=== PATIENT | female | born 1985 | race Caucasian/White ===

== ENCOUNTER 2017-11-13 07:10 | Inpatient (IN) | payer OTHER ==
[~2017-11-13 07:10] MED LIST: CITRIC ACID/SODIUM CITRATE 30 ML UNIT-DOSE CUP PO ONE; ELECTROLYTE-148 SOLN 500 ML IV SCH
[2017-11-13] MEDS ORDERED: ELECTROLYTE-148 SOLN 1,000 ML IV SCH (07:40)
[2017-11-13 08:19] VITALS: BMI 33.4
[2017-11-13] MEDS ORDERED: morphine SULFATE/Preservative Free 0.5 MG/ML (1cc Syringe) ONE (09:38)
[2017-11-13] MEDS ORDERED: BUPIVACAINE 0.75% IN DEXTROSE/PF 2ML AMPULE NR ONE (09:38)
--- NOTE | 2017-11-13 09:44 | HP ---
Past Medical History - Primary Care Physician PCP:: Shamir Trotter - Admission Chief Complaint: 39 weeks, IDDM,previous c/s , sterlizatin History of Present Illness: 31 yo f with 2 previous c/s , IDDM, obesity admitted for repeat c/s and BTL, aware BTL is ermenant ,has small failure risk and risk of ectopic, risks of repeat c/s discussed History Source: Patient - Past Medical History ...: 3 ...Para: 2 ...Term: 2 ...: 0 ...Spon : 0 ...Induced : 0 ...Multiple Gestation: 0 ...LMP: 02/11/17 ... Weeks Gestation by Dates: 39.3 ...EDC by Dates: 11/18/17 ...EDC by Sono: 11/18/17 Endocrine: Yes: Other (GESTATIONAL DIABETES) - Past Surgical History Past Surgical History: Yes: Hx Myomectomy: No Hx Transabdominal Cerclage: No - Smoking History Smoking history: Never smoked Have you smoked in the past 12 months: No - Alcohol/Substance Use Hx Alcohol Use: No History of Substance Use: reports: None - Social History ADL: Independent History of Recent Travel: No Home Medications - Allergies Allergies/Adverse Reactions: Allergies Allergy/AdvReac Type Severity Reaction Status Date / Time No Known Allergies Allergy Verified 11/13/17 08:22 - Home Medications Home Medications: Ambulatory Orders Ferrous Sulfate 325 mg PO BID 10/30/17 Insulin Lispro [Humalog] 9 unit SQ AC 10/30/17 Insulin NPH Hum/Reg Insulin Hm [Humulin 70/30 Kwikpen] 20 unit SQ BID 10/30/17 Pnv No.95/Ferrous Fum/Folic AC [ Vitamin Tablet] 1 each PO DAILY Review of Systems - Review of Systems Constitutional: reports: No Symptoms Eyes: reports: No Symptoms HENT: reports: No Symptoms Neck: reports: No Symptoms Cardiovascular: reports: No Symptoms Respiratory: reports: No Symptoms Gastrointestinal: reports: No Symptoms Genitourinary: reports: No Symptoms Breasts: reports: No Symptoms Reported Musculoskeletal: reports: No Symptoms Neurological: reports: No Symptoms Endocrine: reports: No Symptoms Hematology/Lymphatic: reports: No Symptoms Psychiatric: reports: No Symptoms Physical Exam - Maternity Vital Signs: Vital Signs Temperature 99.4 F 11/13/17 07:10 Pulse Rate 71 11/13/17 07:10 Respiratory Rate 18 11/13/17 07:10 Blood Pressure 139/74 11/13/17 07:10 O2 Sat by Pulse Oximetry (%) Constitutional: Yes: Well Nourished, No Distress, Calm Eyes: Yes: WNL, Conjunctiva Clear, EOM Intact HENT: Yes: WNL, Atraumatic, Normocephalic Neck: Yes: WNL, Supple, Trachea Midline Cardiovascular: Yes: WNL, Regular Rate and Rhythm Breast(s): Yes: WNL - Abdominal Exam/OB Fundal Height: 40 Number of Fetuses: Single Presentation: Vertex Contractions: No Intensity: Unaware Monitor Mode: External Heart Rate Location: [facility] Category: I Accelerations: Uniform Decelerations: None - Vaginal Exam/OB Vaginal Bleediing: No Amniotic Membrane Status: Intact Presentation: Vertex/Position Station: -2 - Physical Exam Musculoskeletal: Yes: WNL Extremities: Yes: WNL Edema: Yes Edema: LLE: 1+, RLE: 1+ Deep Tendon Reflex Grade: Normal +2 Psychiatric: Yes: WNL Problem List - Problems (1) with 39 completed weeks gestation Code(s): Z3A.39 - 39 WEEKS GESTATION OF (2) Previous section Code(s): Z98.891 - HISTORY OF UTERINE SCAR FROM PREVIOUS SURGERY (3) Insulin dependent diabetes mellitus Code(s): E11.9 - TYPE 2 DIABETES MELLITUS WITHOUT COMPLICATIONS; Z79.4 - [facility] (CURRENT) USE OF INSULIN (4) Obesity Code(s): E66.9 - OBESITY, UNSPECIFIED Qualifiers: Obesity type: due to excess calories (5) Admission for sterilization Code(s): Z30.2 - ENCOUNTER FOR STERILIZATION Assessment/Plan admit for repeat c/s, BTL, risks discussed , BGM
[2017-11-13] MEDS ORDERED: OXYTOCIN 20 UNITS in 0.9% NS 20 UNIT/1,000 ML INFUS.BAG IV ONE ×2 (09:47→11:14)
[2017-11-13] MEDS ORDERED: DEXAMETHASONE SOD PHOSPHATE 4 MG/1 ML VIAL ONE (09:54)
[2017-11-13] MEDS ORDERED: KETOROLAC TROMETHAMINE 30 MG/1 ML VIAL ONE (09:54)
[2017-11-13] MEDS ORDERED: SODIUM CHLORIDE 0.9% P/F 10 ML VIAL IJ ONE (10:00)
[2017-11-13] MEDS ORDERED: ceFAZolin SODIUM 1 GM VIAL ONE ×2 (10:00→17:51)
[2017-11-13] MEDS ORDERED: BENZOCAINE 28 GM HEMORRHOIDAL OINTMENT PR PRN (10:49)
[2017-11-13] MEDS ORDERED: oxyCODONE HCL 5 MG TABLET PO PRN ×2 (10:49)
[2017-11-13] MEDS ORDERED: diphenhydrAMINE HCL 25 MG CAPSULE (FP) PO PRN (10:49)
[2017-11-13] MEDS ORDERED: IBUPROFEN 800 MG/8 ML IJ IVPB PRN (10:49)
[2017-11-13] MEDS ORDERED: IBUPROFEN 600 MG TABLET (FP) PO PRN (10:49)
[2017-11-13] MEDS ORDERED: WITCH HAZEL 50% (TUCKS) 40 PAD/JAR PAD TP PRN (10:49)
[2017-11-13] MEDS ORDERED: METHYLERGONOVINE MALEATE 0.2 MG/1 ML AMP IM PRN (10:49)
[2017-11-13] MEDS ORDERED: BENZOCAINE 20% 57 GM BOTTLE TP PRN (10:49)
[2017-11-13] MEDS ORDERED: OXYTOCIN 20 UNITS in 0.9% NS 20 UNIT/1,000 ML INFUS.BAG IV SCH (11:00)
[2017-11-13] MEDS: INSULIN SLIDING SCALE (NOVOLOG) 1 VIAL SQ SCH ×3 (11:17→22:29)
--- NOTE | 2017-11-13 11:46 | OP ---
DATE OF OPERATION: 11/13/2017 PREOPERATIVE DIAGNOSES: , 39 weeks, 2 previous sections, insulin-dependent diabetes and request of repeat section and tubal ligation. POSTOPERATIVE DIAGNOSES: , 39 weeks, 2 previous sections, insulin-dependent diabetes and request of repeat section and tubal ligation. PROCEDURE: Repeat low segment transverse section and bilateral tubal ligation. SURGEON: Shamir Trotter MD SCIENTIFIC ARTIST: RHYS Whitman ANESTHESIA: Spinal. ANESTHESIOLOGIST: . ESTIMATED BLOOD LOSS: 500 mL. OPERATION: Patient was taken to the operating room. Under adequate spinal anesthesia abdomen and perineum were prepped and draped. Pfannenstiel abdominal skin incision was made over the previous incision. Abdominal wall was cut layer by layer until peritoneum was exposed and incised. Upon entering the abdominal cavity lower uterine segment was identified and uterovesical fold of peritoneum established. Bladder was pushed down. Then with the lower blade of the Kathleen retractor in the pelvis a low transverse uterine incision was made. The incision extended laterally with bandage scissors. Amniotic sac was entered. Clear fluid. Head delivered. Nasopharynx was suctioned and live baby delivered without any difficulty. 9, 9. Placenta was delivered manually. Uterine cavity was cleaned of all remaining tissue. Uterine incision was closed in 2 layers, 1st layer with 0 Biosyn continuous suture, the 2nd layer with 0 Biosyn imbricating the 1st layer. Bladder flap was closed with 0 Biosyn continuous suture. Both tubes and ovaries were checked, were normal. No active bleeding was seen. All the lap pad, sponge and instrument counts were correct. Then the right tube was grasped with Madison and right tube was doubly tied with 2-0 plain. Portion of tube was removed and endosalpinx was cauterized. The same procedure repeated for the opposite tube. Visualization of both tubes showed no bleeding. Then peritoneum was closed with 0 Biosyn continuous suture. Muscles were brought together with interrupted suture of 0 Biosyn. Fascia was closed with 0 Biosyn continuous suture, subcutaneous fat interrupted suture of 0 Biosyn and the skin was closed with santo. Patient tolerated procedure well, left the OR in good condition. Guerrero [id number]
[2017-11-13] MEDS ORDERED: DEXTROSE 5%-WATER - 50 ML IVPB ONE (17:51)
[2017-11-13] MEDS: CEFAZOLIN 1 GM in DEXTROSE 5%-WATER - 50 ML IVPB SCH (18:15)
[2017-11-14] MEDS ORDERED: DEXTROSE 5%-WATER - 50 ML IVPB ONE (01:03)
[2017-11-14] MEDS ORDERED: ceFAZolin SODIUM 1 GM VIAL ONE (01:04)
[2017-11-14] MEDS: CEFAZOLIN 1 GM in DEXTROSE 5%-WATER - 50 ML IVPB SCH (01:22)
--- NOTE | 2017-11-14 02:38 | PN ---
Post Progress Note - Subjective Subjective: 31 yo Para 3 status post repeat , seen and evaluated. Doing well. Post Day: 1 Type of Delivery: Repeat C/S Vital Signs: Vital Signs Temperature 98.3 F 11/14/17 01:22 Pulse Rate 64 11/14/17 01:22 Respiratory Rate 18 11/14/17 02:00 Blood Pressure 108/66 11/14/17 01:22 O2 Sat by Pulse Oximetry (%) 99 11/13/17 11:30 Breast Exam: Yes: Soft Uterus: Yes: Fundus Firm Incision: Yes: Dressing dry and intact Abdomen/GI: Yes: Abdomen soft Lochia: Yes: Rubra Lochia, amount: Small Extremities: Yes: Calves non-tender Perineum: Yes: Intact Activity: Other (she's lying in bed) Assessment/Plan Status post repeat Ambulation Analgesia as needed Continue routine post op care
[2017-11-14] MEDS: ACETAMINOPHEN 325 MG TABLET (FP) PO PRN ×4 (04:59→20:30)
[2017-11-14] MEDS: SIMETHICONE 80 MG TAB.CHEW (FP) PO PRN ×2 (05:00→20:29)
[2017-11-14] MEDS: IBUPROFEN 600 MG TABLET (FP) PO PRN ×3 (05:00→15:46)
[2017-11-14] MEDS: INSULIN SLIDING SCALE (NOVOLOG) 1 VIAL SQ SCH ×4 (06:08→21:53)
[2017-11-14 08:51] LABS: BASO % 0.5 % (0-2.0); EOS % 0.4 % (0-4.5); HEMATOCRIT 33.1 % (32.4-45.2); HEMOGLOBIN 11.5 GM/dL (10.7-15.3); LYMPH % 24.1 % (8-40); MCH 31.1 pg (25.7-33.7); MCHC 34.7 g/dl (32.0-36.0); MEAN CELL VOLUME 89.8 fl (80-96); MEAN PLT VOLUME 9.6 fl (7.5-11.1); MONO % 4.7 % (3.8-10.2); NEUT % 70.3 % (42.8-82.8); PLATELET COUNT 197 K/MM3 (134-434); RBC 3.69 M/mm3 (3.60-5.2); RDW 14.4 % (11.6-15.6); WHITE BLOOD COUNT 8.5 K/mm3 (4.0-10.0)
[2017-11-14] MEDS: ENOXAPARIN NA (PORCINE) 40 MG/0.4 ML DISP.SYRIN SQ SCH (09:17)
--- NOTE | 2017-11-14 10:23 | PN ---
Progress Note, Physician Chief Complaint: Pt. ambulating and voiding. Pain controlled, no anesthesia complaints. - Current Medication List Current Medications: Active Medications Acetaminophen (Tylenol -) 650 mg PO Q4H PRN PRN Reason: PAIN LEVEL 6-10 Last Admin: 11/14/17 09:21 Dose: 650 mg Benzocaine (Americaine 20% [place] -) 1 spray TP PRN PRN PRN Reason: Pain - Topical Benzocaine (Americaine Ointment -) 1 applic DC PRN PRN PRN Reason: Pain - Topical Bisacodyl (Dulcolax Suppository -) 10 mg DC PRN PRN PRN Reason: CONSTIPATION Diphenhydramine HCl (Benadryl -) 25 mg PO Q8H PRN PRN Reason: FOR ITCHING Enoxaparin Sodium (Lovenox -) 40 mg SQ DAILY [facility] Last Admin: 11/14/17 09:17 Dose: 40 mg Parenteral Electrolytes (Plasma-Lyte 148 -) 1,000 mls @ 125 mls/hr IV ASDIR [facility] Last Admin: 11/13/17 08:41 Dose: 125 mls/hr Ibuprofen (Motrin -) 600 mg PO Q4H PRN PRN Reason: PAIN LEVEL 1-5 Last Admin: 11/14/17 09:20 Dose: 600 mg Ibuprofen (Motrin -) 600 mg PO Q4H PRN PRN Reason: PAIN LEVEL 1 - 3 Ibuprofen (Caldolor Injection -) 800 mg IVPB Q6H PRN PRN Reason: PAIN > 5 if PO not effective. Last Admin: 11/13/17 17:04 Dose: 800 mg Insulin Aspart (Novolog Vial Sliding Scale -) 1 vial SQ [facility] PRN Reason: Protocol Last Admin: 11/14/17 06:08 Dose: Not Given Methylergonovine Maleate (Methergine Injection -) 0.2 mg IM Q4H PRN PRN Reason: EXCESSIVE BLEEDING Oxycodone HCl (Roxicodone -) 5 mg PO Q4H PRN PRN Reason: PAIN LEVEL 4 - 6 Oxycodone HCl (Roxicodone -) 10 mg PO Q4H PRN PRN Reason: PAIN LEVEL 7 - 10 Senna/Docusate Sodium (Pericolace -) 2 tablet PO HS PRN PRN Reason: CONSTIPATION Simethicone (Mylicon -) 80 mg PO Q4H PRN PRN Reason: GAS Last Admin: 11/14/17 05:00 Dose: 80 mg Witch Nicki/Glycerin (Tucks Pads -) 1 pad TP PRN PRN PRN Reason: Pain - Topical - Objective Vital Signs: Vital Signs Temperature 98.0 F 11/14/17 07:52 Pulse Rate 66 11/14/17 07:52 Respiratory Rate 20 11/14/17 08:00 Blood Pressure 114/62 11/14/17 07:52 O2 Sat by Pulse Oximetry (%) 99 11/13/17 11:30 Constitutional: Yes: Well Nourished, No Distress, Calm Musculoskeletal: Yes: WNL Neurological: Yes: WNL, Alert, Oriented ...Motor Strength: WNL Labs: CBC, BMP 11/14/17 08:00 Assessment/Plan POD#1 s/p under spinal with duramorph. Doing well. D/C from anesthesia care.
[2017-11-14] MEDS ORDERED: BISACODYL 10 MG SUPP.RECT PR PRN (10:49)
[2017-11-14] MEDS: SENNOSIDES/DOCUSATE COMBO (SENNA PLUS) TABLET (UD) PO PRN (20:30)
[2017-11-15] MEDS: SIMETHICONE 80 MG TAB.CHEW (FP) PO PRN ×4 (02:17→21:13)
[2017-11-15] MEDS: IBUPROFEN 600 MG TABLET (FP) PO PRN ×4 (02:17→21:14)
[2017-11-15] MEDS: ACETAMINOPHEN 325 MG TABLET (FP) PO PRN ×4 (02:18→21:13)
[2017-11-15] MEDS: INSULIN SLIDING SCALE (NOVOLOG) 1 VIAL SQ SCH ×4 (06:31→22:16)
[2017-11-15] MEDS: ENOXAPARIN NA (PORCINE) 40 MG/0.4 ML DISP.SYRIN SQ SCH (09:22)
--- NOTE | 2017-11-15 19:42 | PN ---
Post Progress Note - Subjective Subjective: 31 yo Para 3 status post , seen and evaluated. Doing well. Post Day: 2 Type of Delivery: Repeat C/S Vital Signs: Vital Signs Temperature 98.4 F 11/15/17 10:00 Pulse Rate 60 11/15/17 10:00 Respiratory Rate 20 11/15/17 10:00 Blood Pressure 118/67 11/15/17 10:00 O2 Sat by Pulse Oximetry (%) 99 11/13/17 11:30 Breast Exam: Yes: Soft Uterus: Yes: Fundus Firm Incision: Yes: Dressing dry and intact Abdomen/GI: Yes: Abdomen soft, Tolerating PO Lochia: Yes: Rubra Lochia, amount: Small Extremities: Yes: Calves non-tender Perineum: Yes: Intact Activity: Ambulating - Labs Labs: CBC WBC 8.5 K/mm3 (4.0-10.0) 11/14/17 08:00 RBC 3.69 M/mm3 (3.60-5.2) 11/14/17 08:00 Hgb 11.5 GM/dL (10.7-15.3) 11/14/17 08:00 Hct 33.1 % (32.4-45.2) 11/14/17 08:00 MCV 89.8 fl (80-96) 11/14/17 08:00 MCH 31.1 pg (25.7-33.7) 11/14/17 08:00 MCHC 34.7 g/dl (32.0-36.0) 11/14/17 08:00 RDW 14.4 % (11.6-15.6) 11/14/17 08:00 Plt Count 197 K/MM3 (134-434) 11/14/17 08:00 MPV 9.6 fl (7.5-11.1) 11/14/17 08:00 Neutrophils % 70.3 % (42.8-82.8) 11/14/17 08:00 Lymphocytes % 24.1 % (8-40) 11/14/17 08:00 Monocytes % 4.7 % (3.8-10.2) 11/14/17 08:00 Eosinophils % 0.4 % (0-4.5) 11/14/17 08:00 Basophils % 0.5 % (0-2.0) 11/14/17 08:00 Assessment/Plan Status post repeat Ambulation Analgesia as needed Continue routine post op care
[2017-11-15] MEDS: SENNOSIDES/DOCUSATE COMBO (SENNA PLUS) TABLET (UD) PO PRN (21:14)
--- NOTE | 2017-11-16 02:00 | DS ---
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 Vital Signs: Vital Signs Temperature 98.0 F 11/15/17 21:08 Pulse Rate 64 11/15/17 21:08 Respiratory Rate 20 11/15/17 21:08 Blood Pressure 114/68 11/15/17 21:08 O2 Sat by Pulse Oximetry (%) 99 11/13/17 11:30 Constitutional: Yes: Well Nourished Eyes: Yes: Conjunctiva Clear HENT: Yes: Atraumatic Neck: Yes: Supple Cardiovascular: Yes: Regular Rate and Rhythm Respiratory: Yes: Regular Gastrointestinal: Yes: Normal Bowel Sounds External Genitalia: Yes: Normal Vaginal Exam: Yes: Normal Cervix: Yes: Normal Uterus: Yes: Firm Extremities: Yes: WNL Wound/Incision: Yes: Well Approximated Neurological: Yes: Alert, Oriented ...Motor Strength: WNL Psychiatric: Yes: Alert, Oriented Labs: CBC, BMP 11/14/17 08:00 Delivery - Delivery Type of Anesthesia: Spinal EBL (cc): 500 Delivery, Single - Stages of Labor Date 1st Stage Initiatied: 11/13/17 Time 1st Stage Initiated: 07:20 Date of Delivery: 11/13/17 Time of Delivery: 10:02 Time Placenta Delivered: 10:03 - Condition of Infant 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 Present: Yes Name: Micky Montano Infant Gender: Female Weight: 6 lb 13 oz Position: Right, OT Total Hours ROM (Hrs/Mins): 2 hours 53 minutes - 1 Minute Total Score: 9 5 Minutes Total Score: 9 - Feeding Plan Initial Plan: Exclusive throughout hospitalization Discharge Summary Reason For Visit: LABOR Current Active Problems Admission for sterilization (Acute) Insulin dependent diabetes mellitus (Acute) Obesity (Acute) with 39 completed weeks gestation (Acute) Previous section (Acute) Procedures: Principal: Repeat Low Transverse Hospital Course: Routine post op care Condition: Stable - Instructions Diet, Activity, Other Instructions: return to clinic in 1 week for santo removal on 11/21/17. call [facility] for appointment. [phone]. Disposition: HOME - Home Medications Comprehensive Discharge Medication List: Ambulatory Orders Ferrous Sulfate 325 mg PO BID 10/30/17 Insulin Lispro [Humalog] 9 unit SQ AC 10/30/17 Insulin NPH Hum/Reg Insulin Hm [Humulin 70/30 Kwikpen] 20 unit SQ BID 10/30/17 Pnv No.95/Ferrous Fum/Folic AC [ Vitamin Tablet] 1 each PO DAILY
[2017-11-16] MEDS: INSULIN SLIDING SCALE (NOVOLOG) 1 VIAL SQ SCH ×2 (06:12→11:14)
[2017-11-16] MEDS: IBUPROFEN 600 MG TABLET (FP) PO PRN ×2 (06:15→13:24)
[2017-11-16] MEDS: SIMETHICONE 80 MG TAB.CHEW (FP) PO PRN ×2 (06:15→13:25)
[2017-11-16] MEDS: ACETAMINOPHEN 325 MG TABLET (FP) PO PRN ×2 (06:15→13:25)
[2017-11-16 07:33] LABS: BASO % 0.3 % (0-2.0); EOS % 0.9 % (0-4.5); HEMATOCRIT 32.7 % (32.4-45.2); HEMOGLOBIN 11.4 GM/dL (10.7-15.3); LYMPH % 23.1 % (8-40); MCH 31.3 pg (25.7-33.7); MCHC 34.7 g/dl (32.0-36.0); MEAN CELL VOLUME 90.2 fl (80-96); MEAN PLT VOLUME 9.8 fl (7.5-11.1); MONO % 2.7 % (3.8-10.2); PLATELET COUNT 223 K/MM3 (134-434); RBC 3.63 M/mm3 (3.60-5.2); RDW 14.1 % (11.6-15.6); WHITE BLOOD COUNT 8.3 K/mm3 (4.0-10.0)
[2017-11-16] MEDS: ENOXAPARIN NA (PORCINE) 40 MG/0.4 ML DISP.SYRIN SQ SCH (09:05)
[2017-11-16 09:09] VITALS: BP 122/52; PULSE 62; TEMP 97.6
--- NOTE | 2017-11-21 11:27 | PATH ---
Surgical Pathology Report Patient Name: TARI HINTON [facility]. Rec. #: [id number] /Age/Gender: 1985 (Age: 31) / F Account: [id number] Location: [facility] OBS/CARDIAC REHAB NURSE Taken: 11/13/2017 Received: 11/14/2017 Reported: 11/21/2017 Physicians: Shamir Trotter M.D. Specimen(s) Received A: PLACENTA B: PORTION LEFT FALLOPIAN TUBE C: PORTION RIGHT FALLOPIAN TUBE Clinical History , previous 2008, 2012 Gestational diabetes insulin, obese 39.3 weeks gestation Final Diagnosis A. PLACENTA, SECTION: 529 g THIRD TRIMESTER PLACENTA WITH TRIVASCULAR UMBILICAL CORD AND UNREMARKABLE PLACENTAL MEMBRANES. B. FALLOPIAN TUBE, LEFT, PARTIAL EXCISION: FULL LUMINAL PORTION OF UNREMARKABLE FALLOPIAN TUBE. C. FALLOPIAN TUBE, RIGHT, PARTIAL EXCISION: FULL LUMINAL PORTION OF UNREMARKABLE FALLOPIAN TUBE. Electronically Signed Sailaja Culver M.D. Gross Description A. The specimen is received fresh labeled placenta and is a 529 gram, 17.0 x 14.0 x 2.8 cm. placenta with attached membranes and umbilical cord. The attached membranes are lopez, translucent with focal opacities and insert marginally. The umbilical cord measures 38 cm. in length and averages 1.1 cm. in diameter. The cord inserts eccentrically, 4 cm. to the nearest margin. No true knots or strictures are identified. Cut surface of the umbilical cord reveals 3 vessels. The surface is aguillon-blue with minimal fibrin deposition and appropriate caliber vessels. The maternal surface is red-brown with focal defects. Sectioning reveals red-brown, spongy parenchyma. No lesions are identified. [employer] sections are submitted in three cassettes as follows: 1- membrane rolls and umbilical cord; 2-3- full thickness sections of placenta. B. Received in formalin labeled "portion of left fallopian tube," is a 1.6 cm in length portion of fallopian tube. The outer surface is lopez-shabazz and smooth. Sectioning reveals an unremarkable lumen. [employer] sections are submitted in one cassette. C. received in formalin labeled "portion of right fallopian tube," is a 1.3 cm in length portion of fallopian tube. The outer surface is lopez-shabazz and smooth. Sectioning reveals an unremarkable lumen. [employer] sections are submitted in one cassette. 11/19/2017 [facility] [place]11/19/2017
== END 2017-11-16 13:30 | disposition home or self-care (01) | DRG 540 ==
LOC: JLDR 07:10 → J3W 12:20
PROVIDERS: ADMIT Obstetrics & Gynecology; ATTEND Obstetrics & Gynecology
PROC: 10D00Z1 Extraction of Products of Conception, Low, Open Approach (ICD-10-PCS; principal; 2017-11-13)
PROC: 0UB70ZZ Excision of Bilateral Fallopian Tubes, Open Approach (ICD-10-PCS; 2017-11-13)
DX: O34.211 Maternal care for low transverse scar from previous cesarean delivery (principal); N85.8 Other specified noninflammatory disorders of uterus; O24.429 Gestational diabetes mellitus in childbirth, unspecified control; O99.214 Obesity complicating childbirth; E66.9 Obesity, unspecified; Z68.33 Body mass index [BMI] 33.0-33.9, adult; Z3A.39 39 weeks gestation of pregnancy; Z30.2 Encounter for sterilization; Z37.0 Single live birth
CPT/HCPCS: 36415; 82962; 85025; 88302-TC; 88307-TC

== ENCOUNTER 2023-03-11 15:05 | Emergency (ER) | payer OTHER ==
[2023-03-11 15:13] VITALS: BP 156/99; PULSE 87; RESP 18; TEMP 98.2; BMI 29.5
== END 2023-03-11 19:49 | disposition home or self-care (01) ==
LOC: JER 15:05
DX: N64.4 Mastodynia (principal); N60.01 Solitary cyst of right breast
CPT/HCPCS: 76642-TC-RT; 99284-25

== ENCOUNTER 2023-03-15 14:36 | Emergency (ER) | payer OTHER ==
[2023-03-15 14:59] VITALS: BP 148/83; PULSE 73; RESP 18; TEMP 98.8; BMI 29.2
== END 2023-03-15 16:55 | disposition home or self-care (01) ==
LOC: JER 14:36
DX: N61.1 Abscess of the breast and nipple (principal); N64.4 Mastodynia
CPT/HCPCS: 87070; 87205; 99283-25